=== PATIENT | male | born 1980 ===

== ENCOUNTER 2021-01-15 12:16 | Inpatient (IN) | payer OTHER ==
[~2021-01-15 12:16] MED LIST: ASPI81CH43 PO; METR500T PO
== END 2021-01-15 13:53 | disposition home or self-care (01) | DRG 313 ==
LOC: TELE 12:16
DX: R07.89 Other chest pain (principal); R00.1 Bradycardia, unspecified; M54.9 Dorsalgia, unspecified; R94.31 Abnormal electrocardiogram [ECG] [EKG]; Z79.82 Long term (current) use of aspirin
CPT/HCPCS: G0378